=== PATIENT | female | born 1960 | race African-American/Black ===

== ENCOUNTER 2021-01-07 15:02 | Inpatient (IN) | payer OTHER ==
[~2021-01-07] VITALS: Ht 170.2 cm; Wt 49.4 kg
[2021-01-07 15:03] VITALS: BP 115/71
[2021-01-07] MEDS ORDERED: TYLENOL325 MG PO (15:23)
[2021-01-07] MEDS ORDERED: NORVASC10 MG PO (15:24)
[2021-01-07] MEDS ORDERED: JANTOVEN4 MG PO (15:25)
[2021-01-07] MEDS ORDERED: DEXAMETHASONE 22 M1 PO (15:29)
[2021-01-07] MEDS ORDERED: DULCOLAX STOOL100 M1 PO (15:29)
[2021-01-07] MEDS ORDERED: MEGESTROL ACETA20 MG PO (15:30)
[2021-01-07] MEDS ORDERED: SUPER THERAVIT1 EACH PO (15:30)
[2021-01-07] MEDS ORDERED: NORCO5 PO (15:30)
[2021-01-07] MEDS ORDERED: ONDANSETRON ODT4 MG PO (15:32)
[2021-01-07] MEDS ORDERED: ZINC SULFATE50 M1 PO (15:33)
[2021-01-07 15:40] LABS: ABSOLUTE NEUTROPHILS 16.6 thou/uL (1.4-8.2); BASOPHILS 0.3 % (0.0-2.0); EOSINOPHILS 0.1 % (0.0-3.0); HEMATOCRIT 31.2 % (37.0-47.0); HEMOGLOBIN 10.2 gm/dL (12.0-15.0); LYMPHOCYTES 2.3 % (24.0-44.0); MCH 29.2 pg (26.0-34.0); MCHC 32.7 g/dL (28.0-37.0); MCV 89.1 fL (80.0-100.0); MONOCYTES 4.7 % (1.0-8.0); PLATELET COUNT 99 thou/uL (150-400); POLYS 92.6 % (36.0-66.0); RDW 18.3 % (10.5-14.5); WBC 17.9 thou/uL (4.0-11.0)
[2021-01-07 15:47] LABS: ANION GAP 15 mmol/L (7-16); BUN 76 mg/dL (7-18); CALCIUM 8.8 mg/dL (8.5-10.1); CHLORIDE 104 mmol/L (98-107); CO2 21 mmol/L (21-32); CREATININE 2.3 mg/dL (0.6-1.0); GLUCOSE 192 mg/dL (74-106); SODIUM 140 mmol/L (136-145)
[2021-01-07 16:04] LABS: ALBUMIN 3.4 g/dL (3.4-5.0); SGOT 50 U/L (15-37); SGPT 76 U/L (30-65); TOTAL BILIRUBIN 0.7 mg/dL (0.2-1.0); TOTAL PROTEIN 7.7 g/dL (6.4-8.2); TROPONIN-I <0.06 ng/mL (<0.06)
[2021-01-07 16:31] LABS: INR 3.11; PROTIME 32.1 Seconds (10.5-12.1)
[2021-01-07 16:35] LABS: URINE CLARITY CLOUDY; URINE COLOR YELLOW
[2021-01-07 16:36] LABS: URINE LEUKOCYTES-REFLEX 2+ (Negative); URINE NITRITE-REFLEX NEGATIVE (Negative)
[2021-01-07 16:37] LABS: URINE BILIRUBIN NEGATIVE (Negative); URINE BLOOD 3+ (Negative); URINE GLUCOSE-RANDOM* NEGATIVE (Negative); URINE KETONES NEGATIVE (Negative); URINE PROTEIN (DIPSTICK) 3+ (Negative); URINE UROBILINOGEN 0.2 E.U./dl (0.2-1.0)
[2021-01-07 16:40] LABS: WBC CLUMPS Packed (None Seen)
[2021-01-07 16:41] LABS: BACTERIA-REFLEX >30 Many /HPF (None Seen); URINE WBC-REFLEX >25 Many /HPF (0-5)
[2021-01-07 16:42] LABS: URINE RBC 3-10 Few /HPF (NONE SEEN)
[2021-01-07 16:44] LABS: CASTS None Seen /LPF (None Seen); CRYSTALS None Seen /LPF (None Seen); SQUAMOUS None Seen /LPF (0-3)
--- NOTE | 2021-01-07 17:09 | NUR ---
DAUGHTER- JAUN REYNA [phone] CALLED, REPORTS SHE STARTED NOTICING DECLINE IN PT'S SPEECH ON 01/04/20, POOR APPETITE. PT ENDED RADIATION ON 12/31/20 AND WILL START CHEMOTHERAPY 01/15/21. DAUGHTER UPDATED ON POC AT THIS TIME.
[2021-01-07 18:14] LABS: BE(vivo) -5.7 mmol/L (-2 to +3); HCO3 17.6 mmol/L (22.0-26.0); PCO2 27.8 mmHg (35.0-45.0); PO2 89.9 mmHg (80.0-100.0); pH 7.419 (7.360-7.450); sO2 97.1 % (92.0-98.0)
--- NOTE | 2021-01-07 18:23 | NUR ---
DAUGHTER JAUN REYNA UPDATED ON ADMISSION DIAGNOSIS AT THIS TIME.
[2021-01-07 19:04] VITALS: BP 123/67
[2021-01-07 19:08] VITALS: BP 123/67
[2021-01-07 19:27] VITALS: BP 108/66
[2021-01-07 20:15] VITALS: BP 115/81
[2021-01-08 00:10] VITALS: BP 111/72
[2021-01-08 04:12] VITALS: BP 117/66
[2021-01-08 05:32] LABS: HEMATOCRIT 27.8 % (37.0-47.0); HEMOGLOBIN 8.9 gm/dL (12.0-15.0); MCH 28.8 pg (26.0-34.0); MCHC 32.2 g/dL (28.0-37.0); MCV 89.7 fL (80.0-100.0); RBC 3.1 mil/uL (4.20-5.00); WBC 15.4 thou/uL (4.0-11.0)
[2021-01-08 05:49] LABS: CALCIUM 8.3 mg/dL (8.5-10.1); CREATININE 2.3 mg/dL (0.6-1.0); POTASSIUM 5.3 mmol/L (3.5-5.1)
--- NOTE | 2021-01-08 05:52 | NUR ---
Arrived from ER around 2014. Able to tell me her name ,birthday and she's at the hospital upon arrival on the floor then later on she's very forgetful and needs frequent reorientation. Daughter Yecenia was given an update on pt.'s status and she assisted to complete queries on admission hx. Oncology and ID consults called to answering service. Dr. Cabrera called back and order to DC enhanced precaution. IV fluids ordered in ER completed (1L). Dr. Lucia notified to check if he wants to continue IV Fluids and said no. Tolerating room air well , no respiratory distress.
--- NOTE | 2021-01-08 07:08 | EKG ---
[address] [place] [address] ELECTROCARDIOGRAM REPORT Name: KAVIN CABRERA Room #: 352-P ADM IN M.R.#: [id number] Admission: 01/07/21 Attend Phys: Clark Ghosh MD Discharge: Date of : 60 Report #: [id number] [facility] ED Test Date: 2021-01-07 Test Time: 15:16:47 Pat Name: KAVIN CABRERA Department: Room: [facility] Gender: F Pattern Filer: ANSHUL : 1960 Requested By: Joe Cruz Order Number: [id number] MD: Jesus Manuel Giang Measurements Intervals [place] Rate: 98 P: 61 IN: 171 QRS: -23 QRSD: 77 T: 69 QT: 333 QTc: 426 Interpretive Statements Sinus rhythm Borderline left axis deviation No previous ECG available for comparison Electronically Signed On 01-08-2021 7:08:36 CDT by Jesus Manuel Giang [email or web address] <ELECTRONICALLY SIGNED> By: Jesus Manuel Giang MD, [facility] 01/08/21 [id number] Jesus Manuel Giang MD, FACC /EPI
[2021-01-08 07:40] VITALS: BP 112/65
[2021-01-08 11:10] VITALS: BP 116/68
--- NOTE | 2021-01-08 14:56 | NUR ---
INITIAL ASSESSMENT: Received consult. QUINTIN reviewed chart and spoke with nursing and attending physician. Pt was admitted from [facility] due to pneumonia/UTI/sepsis. Pt had negative COVID test on 01/07. Pt is on IV abx. Pt with hx of metastatic cancer. Onc and ID consulted. QUINTIN spoke with pt's dtrNoy, via phone. Introduced role of QUINTIN. Pt was at [facility] until the first part of December. Pt went to [facility] to gain strength before starting chemo. Pt's dtr states that pt's condition has declined since being at [place]. Pt's family does not want her to return to [place] and will consider alternate placement or taking pt home with HH. Pt's dtr states she wants to discuss the plan of care with pt's oncologist, Dr. Venegas, to see if pt would be able to start chemo soon. If so, they will take pt home so she can start chemo. PT/OT ordered today to evaluate pt for discharge needs. Pt has not used HH in the past. QUINTIN updated [facility] post-acute liaison. QUINTIN is following to assist as needed with discharge planning.
[2021-01-08 15:38] VITALS: BP 118/55
--- NOTE | 2021-01-08 16:12 | NUR ---
assumed care of pt at 0700. pt aox1-2 in no acute distress. reports feeling unwell but not voicing any particular complaints. guarded but appears pain. spoke w/ dtr over phone. very weak. vitals stable. room air. uneventful on telemetry. demonstrates understanding of using call light. iv abx infusing per order. wcm.
[2021-01-08 19:49] VITALS: BP 97/65
[2021-01-09 05:26] VITALS: BP 117/73
--- NOTE | 2021-01-09 06:02 | NUR ---
ASSUMED PT CARE AT AROUND 2030 HRS. PT IS WEAK, ALERT TO SELF, REQUIRES ASSIST WITH REPOSITIONING. HAD SOME STOOL SMEARS, NORMAN TO D/D WITH DARK DAMIR URINE.WE BEEN ENCOURAGING DRINKS THRO THE NOC WHICH SHE HAS TAKEN SOME.DENIES PAIN. FLAT AFFECT. AFEBRILE.FALL PREC IN PLACE.
[2021-01-09 07:55] VITALS: BP 113/71
[2021-01-09 09:24] LABS: ABSOLUTE NEUTROPHILS 16.2 thou/uL (1.4-8.2); BASOPHILS 0.5 % (0.0-2.0); HEMATOCRIT 28.1 % (37.0-47.0); HEMOGLOBIN 9.1 gm/dL (12.0-15.0); LYMPHOCYTES 1.5 % (24.0-44.0); MCH 29.2 pg (26.0-34.0); MCHC 32.3 g/dL (28.0-37.0); MCV 90.4 fL (80.0-100.0); MONOCYTES 3.3 % (1.0-8.0); POLYS 94.7 % (36.0-66.0); RBC 3.11 mil/uL (4.20-5.00); RDW 17.8 % (10.5-14.5); WBC 17.1 thou/uL (4.0-11.0)
[2021-01-09 09:25] LABS: PLATELET COUNT 79 thou/uL (150-400)
[2021-01-09 09:36] LABS: CALCIUM 8.7 mg/dL (8.5-10.1); CREATININE 2.2 mg/dL (0.6-1.0); POTASSIUM 5.1 mmol/L (3.5-5.1)
[2021-01-09 09:41] LABS: INR 5.52; PROTIME 55.5 Seconds (10.5-12.1)
[2021-01-09 11:43] VITALS: BP 126/76
--- NOTE | 2021-01-09 15:23 | NUR ---
SW reviewed chart and spoke with nursing and attending physician. Pt is progressing towards goals for discharge. QUINTIN spoke with pt's dtr, Noy, via phone to discuss discharge plan: post-acute placement v. home with HH. Pt is not ready to start chemo yet. SW reviewed in-network SNFs with pt's dtr. There are not many options for facilities. Pt's dtr states she will discuss with pt and her siblings about the options over the weekend. QUINTIN left list of in-network SNF and HH agencies for pt's dtr to review. Insurance authorization will be needed for post-acute placement. QUINTIN updated pt's nurse and attending physician. No weekend discharge planned. QUINTIN is following to assist as needed with discharge planning.
[2021-01-09 15:48] VITALS: BP 110/70
--- NOTE | 2021-01-09 18:55 | NUR ---
ASSUMED PATIENT CARE AT 0700. A/O X4. POOR APPETITE. TOLERATED RA. PAIN MED GIVEN NEEDS. SLOWLY TOWARDS POC GOALS,
[2021-01-09 19:40] VITALS: BP 101/65
[2021-01-10 03:45] VITALS: BP 113/72
[2021-01-10 04:48] LABS: INR 5.89
--- NOTE | 2021-01-10 05:06 | NUR ---
Pt. rested quietly during the night when checked on during frequent rounds. She offers no c/o pain. Zina and cath care given. Pt. turned and repostioned. Bed alarm is on.
[2021-01-10 07:15] VITALS: BP 109/69
[2021-01-10 15:25] VITALS: BP 100/63
--- NOTE | 2021-01-10 18:09 | NUR ---
NO CHANGE ON THIS SHIFT. VSS. SLOWLY TOWARDS POC GOALS.
[2021-01-10 19:18] VITALS: BP 99/55
--- NOTE | 2021-01-10 20:43 | NUR ---
PT ALERT AND ORIENTED X3. VSS . BP MODERATELY LOW. ENCOURAGED PT TO EAT AND DRINK. SNACK PROVIDED. SHE ATE 1 PUDDING. BS 211. SIDE AILS UP X3. BED ALARM IS ON. ENCOURAGED PT TO TURN IN BED. SCDS ON. WILL CONTINUE TO MONIOR PT FOR CHANGES.
[2021-01-11 02:47] VITALS: BP 105/68
--- NOTE | 2021-01-11 05:05 | NUR ---
PT ALERT AND ORIENTED X 3. MILDLY CONFUSED. MOANS AT TIMES MAGNOLIA IN PAIN BUT SHE HAS REFUSED TYENOL AND HYDROCODONE TONIGHT. REPOSITIONED PT. MOISTURE BARRIER TO BUTTOCKS. INC IOF STOOL X1. NORMAN DRAINING CLEAR YELLOW URINE. NO S/S BLEEDING NOTED. NO SOA. NO S/S DISTRESS.
[2021-01-11 05:13] LABS: PROTIME 39.7 Seconds (10.5-12.1)
[2021-01-11 05:17] LABS: INR 3.89
[2021-01-11 06:57] VITALS: BP 104/68
--- NOTE | 2021-01-11 12:55 | NUR ---
PT ALERT AND ORIENTED TIMES THREE. VSS. NORMAN TO ROSSY. PT C/O PAIN. PAIN MEDICATIONS GIVEN WITH GOOD RELEIF. PT TOLERATES MEDS, EATS SMALL PORTIONS OF MEALS. PLANS TO DISCHARGE TO [facility] TOMORROW. WILL CONTINUE TO MONITOR.
[2021-01-11 15:11] VITALS: BP 98/65
[2021-01-11 20:04] VITALS: BP 96/65
--- NOTE | 2021-01-12 02:32 | NUR ---
PT AOX3, TO PERSON, PLACE, AND TIME. PT WITH INTERMITTENT FORGETFULNESS, NOTABLY LETHARGIC AND WEAK. PT DENIES PAIN, ASSESSED WITH FLACC OF 2, PT WITH MOANING, GRIMACING, AND SLIGHT RESTLESSNESS. PT INTERMITTENTLY REPORTING SOB, REFUSING APPLICATION OF O2, NOTED TO HAVE SOB WITH EXERTION. PT TOLERATING PO INTAKE OF FLUIDS AND REGULAR DIET WITHOUT ISSUE, PT WITHOUT NAUSEA OR EMESIS. NORMAN REMAINS IN PLACE, PATENT WITH SECUREMENT DEVICE. PT RESTING IN BED THROUGHOUT SHIFT, FREQUENT REPOSITIONING ENCOURAGED, PT NOTED TO SHIFT SLIGHTY ON HER OWN, REPOSITION ASSISTANCE OFFERED, INTERMITTENTLY REFUSED. CAPILLARY REFILL LESS THAN 3 SEC IN ALL EXTREMITIES, BUE PULSES PALPABLE, BLE PULSES FAINT. PT ENCOUARGED TO NOTIFY STAFF FOR ALL NEEDS, CALL LIGHT WITHIN REACH, BED ALARM ON, BED LOCKED IN LOWEST POSITION, ROOM REMAINS NEAR NURSES STATION, FREQUENT MONITORING WILL CONTINUE.
[2021-01-12 03:54] LABS: INR 2.92; PROTIME 30.2 Seconds (10.5-12.1)
[2021-01-12 04:45] VITALS: BP 94/55
[2021-01-12 07:10] VITALS: BP 83/56
--- NOTE | 2021-01-12 13:54 | NUR ---
QUINTIN reviewed chart and spoke with nursing and attending physician. Per attending physician, pt is ready for discharge today. Pt had talked with staff about hospice services. Attending physician spoke with pt's dtr about hospice. QUINTIN spoke with pt's dtr, Noy, via phone to discuss hospice services. Noy states they want pt to discharge home and they may need DME delivered prior to pt's discharge. Options provided for hospice providers. No preference voiced. QUINTIN faxed hospice referral to [facility] and notified liaison of new referral. clinical rehab liaison to meet with pt and family around 1500 this afternoon. QUINTIN updated Noy via phone. QUINTIN also updated pt's nurse and attending physician. QUINTIN is following to assist as needed with discharge planning.
[2021-01-12] MEDS ORDERED: LEVOFLOXACIN500 MG PO (14:39)
[2021-01-12] MEDS ORDERED: NORVASC5 MG PO (14:39)
[2021-01-12] MEDS ORDERED: HYDROCODON-ACE1 EAC7 PO (14:40)
[2021-01-12] MEDS ORDERED: TRADJENTA5 MG PO (14:41)
[2021-01-12 15:35] VITALS: BP 100/80
[2021-01-12 16:24] VITALS: BP 100/80
--- NOTE | 2021-01-12 17:03 | NUR ---
PT IS VERY MALNURISHED WITH VERY POOR INTAKE AND APPETITE. PT WILL ATTEMPT TO TAKE A FEW BITES OF EACH MEAL BUT MAY ONLY TAKE 2-3 BITES OF ENTIRE MEAL BEFORE SHE IS DONE. PT WILL TAKE VERY SMALL SIPS OF WATER THROUGHOUT DAY. PT IS EXTREMELY WEAK AND UNABLE TO HOLD CUP OR UTENSILS SO NURSING STAFF HAVE BEEN OFFERING DRINKS THROUGH OUT DAY WELL FEEDING PT.
[2021-01-12 18:22] VITALS: BP 100/80
--- NOTE | 2021-01-12 18:33 | NUR ---
RN CALLED AND SPOKE WITH PT'S DAUGHTER RENETTA. PT IS D/C'ING HOME WITH HOSPICE TO RENETTA'S HOUSE. PICKUP TIME SCHEDULED AT 1930. DISCHARGE PAPERWORK GONE OVER THE PHONE WITH RENETTA AND ANY QUESTIONS ANSWERED. RENETTA MADE AWARE THAT PT IS COMING HOME WITH NEW PRESCRIPTIONS IN A [place] [employer] SO SHE IS AWARE TO LOOK FOR PRESCRIPTIONS UPON ARRIVAL.
[2021-01-13 01:06] LABS: GLYCOHEMOGLOBIN (HGB A1C) 8.6 % (4.8-5.6)
== END 2021-01-12 19:03 | disposition hospice, home (50) | DRG 871 ==
LOC: ER 15:02 → 3W 18:27 → EROBS 18:27 → 3W 20:21
PROVIDERS: Internal Medicine; Physician Assistant; ADMIT Hospitalist; ATTEND Hospitalist
DX: A41.9 Sepsis, unspecified organism (principal); J18.9 Pneumonia, unspecified organism; N39.0 Urinary tract infection, site not specified; G93.40 Encephalopathy, unspecified; C79.51 Secondary malignant neoplasm of bone; C79.31 Secondary malignant neoplasm of brain; C34.90 Malignant neoplasm of unspecified part of unspecified bronchus or lung; R65.20 Severe sepsis without septic shock; E11.22 Type 2 diabetes mellitus with diabetic chronic kidney disease; I12.9 Hypertensive chronic kidney disease with stage 1 through stage 4 chronic kidney disease, or unspecified chronic kidney disease; N18.30 Chronic kidney disease, stage 3 unspecified; E78.5 Hyperlipidemia, unspecified; M54.9 Dorsalgia, unspecified; D63.8 Anemia in other chronic diseases classified elsewhere; E11.65 Type 2 diabetes mellitus with hyperglycemia; Z20.822 Contact with and (suspected) exposure to COVID-19; Z51.5 Encounter for palliative care; Z86.711 Personal history of pulmonary embolism; Z79.01 Long term (current) use of anticoagulants; Z79.899 Other long term (current) drug therapy; Z92.3 Personal history of irradiation; Z92.21 Personal history of antineoplastic chemotherapy; Y95 Nosocomial condition
CPT/HCPCS: 10879